=== PATIENT | male | born 1945 | race African-American/Black ===

== ENCOUNTER 2020-08-14 14:09 | Emergency (ER) | payer MEDICARE, OTHER ==
[~2020-08-14] VITALS: Ht 190.5 cm; Wt 88.0 kg
[2020-08-14] MEDS ORDERED: BACITRACIN ZINC OINT UDPKT TOP ONE (14:45)
[2020-08-14 15:27] VITALS: BP 128/98
== END 2020-08-14 15:29 | disposition home or self-care (01) ==
LOC: ER 14:09
DX: S80.01XA Contusion of right knee, initial encounter (principal); W22.8XXA Striking against or struck by other objects, initial encounter; Y93.89 Activity, other specified; Y92.89 Other specified places as the place of occurrence of the external cause
CPT/HCPCS: 99282